=== PATIENT | female | born 1940 | race Caucasian/White ===

== ENCOUNTER → 2017-02-03 | Outpatient (CLI) | payer MEDICARE ==
[~2017-02-03] MED LIST: ARTHRITIS PAIN325 M1 PO; CALCIUM 600 + V1 TA1 PO; CALCIUM 600600 M2 PO; CALTRATE 600 +1 TAB PO; CENTRUM1 TAB PO; COLACE 100100 MG/CAP PO; COUMADIN 22.5 MG/TAB PO; COUMADIN 5MG5 MG/TAB PO; COUMADIN5 MG PO; DAILY MULTIPLE1 TAB PO; FIBRE1 TAB PO; FIBRICOR35 MG PO; FISH OIL CONC1000 MG PO; FLAXSEED OIL1 CAP PO; FLAXSEED OIL1000 MG PO; FLOVENT 110MCG7.9 GM IH; FOLIC ACID800 MCG PO; FOSAMAX5 MG; GLUCOSAMINE PO; GLUCOSAMINE S1000 MG PO; KADIAN10 MG PO; KADIAN60 MG PO; KLOR-CON 1010 MEQ PO; LASIX 20MG TABL20 MG PO; LASIX20 MG PO; LISINOPRIL/HCTZ1 TA2 PO; LOPID 600M600 MG/TAB PO; LOPID600 MG PO; LORTAB 10/500 51 TAB PO; MELOXICAM15 MG PO; METAMUCIL1 PDR PO; MICRO-K 1010 MEQ PO; MOBIC15 MG PO; MULTAQ PO; MULTAQ400 MG PO; MULTIPLE VITAMI1 CTB PO; MVI; MVI PO; NORCO 325 MG-7.1 TAB PO; OMEGA-3 FISH1200 MG PO; OXYCODONE10 MG PO; OXYCONTIN10 MG PO; PREDNISONE10 MG PO; PREVACID 30MG30 MG PO; PRILOSEC 20MG20 MG PO; PRILOSEC20 MG PO; PRINZIDE; PRINZIDE 25 MG-1 TAB PO; PROAIR HFA0.09 MG/AC IH; QVAR0.04 MG/AC IH; QVAR0.08 MG/AC IH; REFRESH TEARS 115 ML OP; ROXICODONE 55 MG/TAB PO; RT ALBUTER2.5 MG/0.5 IH; SEREVENT IH; SINGULAIR 110 MG/TAB PO; SINGULAIR10 MG PO; SUPER EPA 1201200 MG PO; TOPICORT0.05% TP; TYLENOL 325MG325 MG PO; TYLENOL 8 HR PO; VENTOLIN0.09 MG IH; VICODIN PO; VITAMIN C500 MG PO; VITAMIN D3400 I1 PO; VITAMIN E1000 U/CAP PO; VITAMIN E200 I1 PO; VITAMIN E800 I1 PO; WARFARIN SODIUM1 MG PO; [UNRECOGNIZED DRUG - OTHER] PO
== END ==
LOC: MC.RAD 14:20
DX: Z12.31 Encounter for screening mammogram for malignant neoplasm of breast (principal)

== ENCOUNTER 2017-07-03 07:41 | Emergency (ER) | payer MEDICARE, OTHER ==
[~2017-07-03] VITALS: Ht 157.5 cm; Wt 72.7 kg
[2017-07-03 07:43] VITALS: TEMP 98.3
[2017-07-03 09:09] LABS: HEMATOCRIT 41.8 % (37.0-47.0); MEAN CELL VOLUME 104 fl (80.0-100.0); MEAN CORPUSCULAR HEMOGLOBIN 32 pg (27.0-31.0); MEAN CORPUSCULAR HGB CONC 31 g/dl (33.0-37.0); MEAN PLATELET VOLUME 9.8 fl (7.4-10.4); PLATELET COUNT 208 K/mm3 (130-400); RED BLOOD COUNT 4.03 M/mm3 (4.10-5.30); WHITE BLOOD COUNT 8.2 K/mm3 (4.8-10.8)
[2017-07-03 09:12] LABS: ADD PATHOLOGY DIFF REVIEW NO
[2017-07-03 09:25] LABS: BAND 8 % (0-10); EOSINOPHIL 1 % (0-4); LYMPHOCYTE 14 % (20.0-51.0); NEUTROPHILS 69 % (42.0-75.2); PLATELET ESTIMATE NORMAL (NORMAL); TOTAL CELLS COUNTED 100
[2017-07-03 09:26] LABS: ANISOCYTOSIS 2+
[2017-07-03 09:31] LABS: ERYTHROCYTE SEDIMENTATION RATE 10 mm/hr (0-30)
[2017-07-03] MEDS ORDERED: ZYLOPRIM 100MG100 MG PO (09:34)
[2017-07-03] MEDS ORDERED: LOPRESSOR 225 MG/TAB PO (09:35)
[2017-07-03] MEDS ORDERED: LOVENOX 8080 MG/0.8 SQ (09:35)
[2017-07-03] MEDS ORDERED: MACROBID 1100 MG/CAP PO (09:36)
[2017-07-03] MEDS ORDERED: TYLENOL 8 HR PO (09:37)
[2017-07-03] MEDS ORDERED: MIRTAZAPINE7.5 MG PO (09:38)
[2017-07-03] MEDS ORDERED: XARELTO20 MG PO (09:38)
[2017-07-03 10:37] VITALS: BP 152/84; PULSE 66
== END 2017-07-03 09:59 ==
LOC: COL.ER 07:41
PROVIDERS: Emergency Medicine
DX: S70.01XA Contusion of right hip, initial encounter (principal); I10 Essential (primary) hypertension; I48.91 Unspecified atrial fibrillation; J45.909 Unspecified asthma, uncomplicated; Z90.49 Acquired absence of other specified parts of digestive tract; Z98.890 Other specified postprocedural states; X58.XXXA Exposure to other specified factors, initial encounter; Y92.129 Unspecified place in nursing home as the place of occurrence of the external cause